=== PATIENT | male | born 1985 | race Caucasian/White ===

== ENCOUNTER 2020-09-23 19:02 | Emergency (ER) | payer OTHER ==
[~2020-09-23] VITALS: Ht 175.3 cm; Wt 81.6 kg
[2020-09-23 19:10] VITALS: BP 138/76
[2020-09-23] MEDS ORDERED: ACETAMINOPHEN ES 500 MG TABLET ONE (19:29)
[2020-09-23] MEDS ORDERED: ACETAMINOPHEN ES 500 MG TABLET PO ONE (19:30)
[2020-09-23] MEDS ORDERED: CEPH500T PO (19:40)
--- NOTE | 2020-09-23 19:51 | NUR ---
Patient discharged to home in stable condition. Written and verbal after care instructions given. Patient verbalizes understanding of instruction.
--- NOTE | 2020-09-23 19:51 | NUR ---
IV removed. Catheter intact and site benign. Pressure and 4x4 applied to site. No bleeding noted.
== END 2020-09-23 20:43 | disposition home or self-care (01) ==
LOC: ER 19:16
DX: L03.113 Cellulitis of right upper limb (principal); G56.31 Lesion of radial nerve, right upper limb; I10 Essential (primary) hypertension; Z60.2 Problems related to living alone

== ENCOUNTER 2021-10-15 02:39 | Emergency (ER) | payer OTHER ==
[~2021-10-15] VITALS: Ht 175.3 cm; Wt 81.6 kg
[~2021-10-15 02:39] MED LIST: CEPH500T PO
[2021-10-15 02:56] VITALS: BP 146/70
[2021-10-15] MEDS ORDERED: FLUORESCEIN SODIUM OPHTH 1 EA STRIP ONE (03:24)
[2021-10-15] MEDS ORDERED: TETRAcaine 5 ML BOTTLE EACHEYE ONE (03:30)
[2021-10-15] MEDS ORDERED: FLUORESCEIN SODIUM OPHTH 1 EA STRIP OP ONE (03:30)
[2021-10-15] MEDS ORDERED: CIPR2.5D14 EACHEYE (03:33)
--- NOTE | 2021-10-15 03:36 | NUR ---
Patient discharged to [facility] custody in stable condition. RX Written and verbal after care instructions given. Patient verbalizes understanding of instruction.
== END 2021-10-15 03:39 ==
LOC: ER 02:46
DX: S05.02XA Injury of conjunctiva and corneal abrasion without foreign body, left eye, initial encounter (principal); S05.01XA Injury of conjunctiva and corneal abrasion without foreign body, right eye, initial encounter; I10 Essential (primary) hypertension; Z60.2 Problems related to living alone; W22.8XXA Striking against or struck by other objects, initial encounter; Y93.89 Activity, other specified; Y92.89 Other specified places as the place of occurrence of the external cause; Y99.8 Other external cause status